=== PATIENT | female | born 1990 | race Hispanic/Latino ===

== ENCOUNTER 2017-01-16 01:02 | Inpatient (IN) | payer OTHER ==
[~2017-01-16] VITALS: Ht 154.9 cm; Wt 88.0 kg
[2017-01-16] MEDS ORDERED: LR 1,000 ML IV SCH (05:11)
[2017-01-16] MEDS ORDERED: LACTATED RINGER'S 1000 ML IV STA (05:11)
--- NOTE | 2017-01-16 05:22 | HPEPDOC ---
Obstetrical History & Physical General Date of Admission Jan 16, 2017 at 05:06 History of Present Illness 26 y/o at 37+6 with painful reg ctx's increasing in freq and duration and pain. Seen several hrs ago and was 3 cm, now after wlaking is 4/80/-2/vtx well applied. No LOF/VB. Pos FM throughout. Chief Complaint: Contractions, term Information Provided By: Patient Care Care: Good Care Dating Final EDC: Jan 31, 2017 Final EDC by: LMP, 1st trimester (US) Antepartum Course Diagnos(e)s pos chlamydia JUL with neg JOSHUA HSIL pap-had colpo-plan on f/u PP Past Medical History Past Obstetrical History : Past Obstetrical History: Multigravida Type of Delivery: Spontaneous Vaginal Del. 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 ABDOMEN: Gravid and non-tender to touch. FETUS: vertex (VTX) by sterile vaginal examination, 4/80/-2 EXTREMITIES: No edema. Vital Signs/I&O Vital Signs Date Time Temp Pulse Resp B/P (MAP) Pulse Ox O2 Delivery O2 Flow Rate FiO2 01/16/17 01:23 97.6 Laboratory Data [facility] Laboratory Tests 2 01/16/17 05:00: Serology Scanned Report Hepatitis B Testing Urine Culture: Contaminated Pertinent Laboratoy Data Blood Type: O+ RBC Antibody Screen: Negative HIV: Negative Hepatitis B: Negative Hepatitis C: Unknown Rapid Plasma Reagin: Nonreactive Rubella: Immune Varicella: Immune Chlamydia/Gonorrhea: Positive (CT pos , neg JOSHUA in ) Group B Streptococcus: Negative Cystic Fibrosis: Negative Anatomy Ultrasound Ultrasound Date: Sep 11, 2016 Placenta Location: Posterior Normal Anatomy: Yes (limited heart and facial views, rpt done 11APR with nl views of both) Placenta Previa: No Steroid Therapy Steroid Therapy: No Assessment Variability: Moderate Accelerations: Positive Decelerations: None Tocometer Contractions: Yes Frequency: regular Duration: greater than 60 seconds Strength: palpated as strong Assessment/Plan Assessment Now in active labor, was at ~ 0230, now /-2. GBS neg. Desires epidural. Plan Admit and orient. 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 Diet: clrs Labs and intravenous (IV) per unit protocol. Counseled on Pitocin possibility Lactated Ringers (LR): Bolus 1000 mL, then at 125 mL/hr. Anticipate normal spontaneous delivery () C-S as appropriate. Sessions SESSIONS,MARISSA Tipton MD Jan 16, 2017 05:22
[2017-01-16 05:31] LABS: MEAN CORPUSCULAR HEMOGLOBIN 31.5 pg (27.0-33.0); MEAN CORPUSCULAR HGB CONC 34.9 g/dl (32.0-36.5); MEAN CORPUSCULAR VOLUME 90.3 fl (80.0-96.0); RED CELL DISTRIBUTION WIDTH 12.7 % (11.5-14.5); WHITE BLOOD COUNT 14.3 K/mm3 (4.0-10.0)
[2017-01-16] MEDS ORDERED: FENTANYL 2MCG/ML ROPIVACAINE 0.2% IN 0.9% NACL 200ML IVBAG As Ordered ONE (06:15)
[2017-01-16] MEDS ORDERED: ePHEDrine SULFATE 25 MG/5 ML(5MG/ML) SYRINGE IV PRN (07:15)
[2017-01-16] MEDS ORDERED: NALOXONE INJ 0.4 MG/1 ML VIAL (J2310) IV PRN (07:15)
[2017-01-16] MEDS ORDERED: REFRIGERATOR IV KEYS XX PRN (07:15)
[2017-01-16] MEDS ORDERED: diphenhydrAMINE INJ 50MG/ML VIAL (J1200) IV PRN (07:15)
[2017-01-16] MEDS ORDERED: EPIDURAL COMMENT XX SCH (07:15)
[2017-01-16] MEDS ORDERED: FENTANYL/ROPIVACAINE/NACL BAG 200 ML EPIDURAL SCH (07:15)
[2017-01-16] MEDS ORDERED: LACTATED RINGER'S 1000 ML IV PRN (07:15)
[2017-01-16] MEDS ORDERED: EPIDURAL/PCA KEYS XX PRN (07:15)
[2017-01-16] MEDS ORDERED: ONDANSETRON 4MG/2ML VIAL (J2405) IV PRN (07:15)
[2017-01-16] MEDS: PRENATAL VITAMINS CHEWABLE TABLET PO SCH (09:00)
[2017-01-16] MEDS ORDERED: OXYTOCIN 30 UNITS IN 0.9% NaCl 500ML IV BAG (J2590) As Ordered ONE (09:19)
[2017-01-16] MEDS ORDERED: OXYTOCIN DRIP 30 UNITS in APPROPRIATE DILUENT 1 EA IV SCH (10:57)
[2017-01-16] MEDS ORDERED: METHYLERGONOVINE MALEATE 0.2 MG TAB PO PRN (11:00)
[2017-01-16] MEDS ORDERED: PROMETHAZINE 25 MG TAB PO PRN (11:00)
[2017-01-16] MEDS ORDERED: RHOGAM 300 MCG (1500 IU) INJ (J2790) IM SCH (11:00)
[2017-01-16] MEDS ORDERED: ACETAMINOPHEN 500 MG TAB PO PRN (11:00)
[2017-01-16] MEDS ORDERED: DOCUSATE SODIUM 100 MG CAP PO PRN (11:00)
[2017-01-16] MEDS ORDERED: MEASLES,MUMPS,RUBELLA VACCINE INJ (MMR-II) (90707) SC SCH (11:00)
[2017-01-16] MEDS ORDERED: DIBUCAINE 1% OINTMENT 30GM TOP PRN (11:00)
[2017-01-16] MEDS ORDERED: MOM 30ML SUSPENSION UDC PO PRN (11:00)
[2017-01-16] MEDS: IBUPROFEN 800 MG TAB PO PRN (12:10)
[2017-01-16 13:15] VITALS: BP 113/64
[2017-01-16 18:07] VITALS: BP 104/57
[2017-01-17 06:05] VITALS: BP 141/73
[2017-01-17] MEDS: PRENATAL VITAMINS CHEWABLE TABLET PO SCH (08:00)
[2017-01-17] MEDS: IBUPROFEN 800 MG TAB PO PRN (08:01)
[2017-01-17] MEDS ORDERED: COLA100C5 PO (10:48)
[2017-01-17] MEDS ORDERED: TYLE325T5 PO (10:48)
[2017-01-17] MEDS ORDERED: MOTR200T44 PO (10:48)
== END 2017-01-17 11:50 | disposition home or self-care (01) | DRG 775 ==
LOC: M LDO 01:02 → M LDI 05:06 → M OBS 12:57
PROVIDERS: ADMIT Obstetrics & Gynecology; ATTEND Obstetrics & Gynecology
PROC: 10E0XZZ Delivery of Products of Conception, External Approach (ICD-10-PCS; principal; 2017-01-16)
PROC: 0KQM0ZZ Repair Perineum Muscle, Open Approach (ICD-10-PCS; 2017-01-16)
DX: O70.1 Second degree perineal laceration during delivery (principal); Z3A.37 37 weeks gestation of pregnancy; Z37.0 Single live birth